=== PATIENT | female | born 1990 | race Caucasian/White ===

== ENCOUNTER 2016-06-25 10:48 | Emergency (ER) | payer OTHER ==
[2016-06-25 11:04] VITALS: BP 108/61
--- NOTE | 2016-06-25 11:10 | ER Document Report ---
HPI - HPI Onset: Other - 2 days Quality of pain: No pain Pain Level: Denies Context: 25-year-old female had a ring that she normally wears on her left fourth finger but was cold and so the rings loose and she put it on her third finger of her left hand. She woke up the next morning and was unable to get it off so she came to the emergency room and it is already been twisted off by the nurse. Finger exam is normal. Associated Symptoms: None Exacerbated by: Denies Relieved by: Denies Similar symptoms previously: No Recently seen / treated by doctor: No - ROS ROS below otherwise negative: Yes Systems Reviewed and Negative: Yes All other systems reviewed and negative - CONSTITUTIONAL Constitutional: DENIES: Fever, Chills - EENT EENT: DENIES: Sore Throat, Ear Pain, Nasal Drainage-Clear, Nasal Drainage- Purulent, Congestion, Eye problems - NEURO Neurology: DENIES: Headache, Weakness, Vision blurred, Dizzinesss / Vertigo - CARDIOVASCULAR Cardiovascular: DENIES: Chest pain - RESPIRATORY Respiratory: DENIES: Trouble Breathing, Coughing - GASTROINTESTINAL Gastrointestinal: DENIES: Abdominal Pain, Nausea, Patient vomiting, Diarrhea, Constipation, Black / Bloody Stools - URINARY Urinary: DENIES: Dysuria, Urgency, Frequency - REPRODUCTIVE Reproductive: DENIES: :, Postmenopausal, Abnormal bleeding / discharge - MUSCULOSKELETAL Musculoskeletal: DENIES: Extremity pain, Back Pain, Neck Pain, Swelling - DERM Skin Color: Normal Skin Problems: None - NURSING COMMENTS Comment: pt states she has ring stuck on the left middle finger. ring removed by ria pct. no complications Past Medical History - General Information source: Patient - Social History Smoking Status: Unknown if Ever Smoked Cigarette use (# per day): No Chew tobacco use (# tins/day): No Frequency of alcohol use: Occasional Drug Abuse: None Lives with: Spouse/Significant other Family History: Reviewed & Not Pertinent Patient has suicidal ideation: No Patient has homicidal ideation: No - Medical History Medical History: Negative Renal/ Medical History: Denies: Hx Peritoneal Dialysis Surgical Hx: Negative - Immunizations Hx Diphtheria, Pertussis, Tetanus Vaccination: No Vertical Provider Document - CONSTITUTIONAL Agree With Documented VS: Yes Exam Limitations: No Limitations General Appearance: No Apparent Distress - INFECTION CONTROL TRAVEL OUTSIDE OF THE [place] IN LAST 30 DAYS: No - HEENT HEENT: Normocephalic - NECK Neck: Supple - RESPIRATORY O2 Sat by Pulse Oximetry: 98 - MUSCULOSKELETAL/EXTREMETIES Musculoskeletal/Extremeties: MAEW, FROM, Non-Tender - NEURO Level of Consciousness: Awake, Alert - DERM Integumentary: Warm, Dry Course - Vital Signs Vital signs: Temp Pulse Resp BP Pulse Ox 98.0 F 79 14 108/61 98 06/25/16 11:02 06/25/16 11:02 06/25/16 11:02 06/25/16 11:02 06/25/16 11:02 Discharge - Discharge Clinical Impression: third left finger ring removal Condition: Good Disposition: HOME, SELF-CARE Additional Instructions: to er any concerns
== END 2016-06-25 11:10 | disposition home or self-care (01) ==
LOC: ER 10:48
DX: S60.455A Superficial foreign body of left ring finger, initial encounter (principal); X58.XXXA Exposure to other specified factors, initial encounter
CPT/HCPCS: 99283

== ENCOUNTER 2016-09-30 12:43 | Emergency (ER) | payer OTHER ==
[2016-09-30] MEDS ORDERED: LIDOCAINE 1% INJ-PF (10 MG/ML) 30 ML SDV INJ ONE (13:40)
[2016-09-30] MEDS ORDERED: LIDOCAINE 4%/TETRACAINE 0.5%/EPI 0.18% 5 ML TOPICAL SOLN TOP ONE (13:40)
--- NOTE | 2016-09-30 14:46 | ER Document Report ---
HPI - HPI Patient complains to provider of: Laceration Pain Level: 0 Context: Patient is a 26-year-old female presented with department with 2 lacerations on her right hand dishes one is on the second digit on the PIP and the second is on the third digit on the PIP. Patient's tetanus is up-to-date as of a year ago. Otherwise she denies any allergies [facility] - CARDIOVASCULAR Cardiovascular: DENIES: Chest pain - REPRODUCTIVE Reproductive: DENIES: : - DERM Skin Color: Normal Past Medical History - Social History Smoking Status: Current Some Day Smoker Frequency of alcohol use: Occasional Drug Abuse: None Family History: Reviewed & Not Pertinent Patient has suicidal ideation: No Patient has homicidal ideation: No Renal/ Medical History: Denies: Hx Peritoneal Dialysis Surgical Hx: Negative - Immunizations Hx Diphtheria, Pertussis, Tetanus Vaccination: No Vertical Provider Document - CONSTITUTIONAL Agree With Documented VS: Yes Exam Limitations: No Limitations General Appearance: WD/WN, No Apparent Distress - INFECTION CONTROL TRAVEL OUTSIDE OF THE [place] IN LAST 30 DAYS: No - RESPIRATORY O2 Sat by Pulse Oximetry: 99 - CARDIOVASCULAR Pulses: Bounding: Radial - Capillary refill less than 2 seconds in all upper extremity digits - MUSCULOSKELETAL/EXTREMETIES Musculoskeletal/Extremeties: MAEW, FROM, Non-Tender, No Edema Notes: No evidence of tendon injury. Full range of motion - NEURO Level of Consciousness: Awake, Alert, Appropriate Motor/Sensory: No Motor Deficit, No Sensory Deficit - DERM Integumentary: Laceration - Both are measuring 2 cm in length. one is on the second digit on the PIP and the second is on the third digit on the PIP.The laceration on the second digit is extending into the subcutaneous fat the other laceration on the third digit is superficial not passing the dermis. Course - Re-evaluation Re-evalutation: 09/30/16 20:18 26-year-old female who is hemodynamic stable, no acute distress and afebrile. The right second digit laceration was closed with 2 5-0 nylon sutures after irrigation with Betadine and saline dressed with dry sterile dressing. Laceration on the third digit was closed with Steri-Strips. Discussed with patient to follow-up in 8-10 days with primary care for removal - Vital Signs Vital signs: Temp Pulse Resp BP Pulse Ox 97.8 F 91 18 104/79 99 09/30/16 12:47 09/30/16 12:47 09/30/16 12:47 09/30/16 12:47 09/30/16 12:47 Procedures - Laceration/Wound Repair Right Hand Wound length (cm): 2 Wound's Depth, Shape: Linear Laceration pre-procedure: Sterile PPE donned, Betadine prep applied, Sterile drapes applied Anesthetic type: Other - LET Wound explored: Clean, No foreign body removed Wound Debrided: Minimal Wound Repaired With: Sutures Suture Size/Type: 5:0, Nylon Number of Sutures: 2 Layer Closure?: No Post-procedure wound care: Sterile dressing applied Post-procedure NV exam normal: Yes Complications: No Discharge - Discharge Clinical Impression: Laceration Condition: Good Disposition: HOME, SELF-CARE Instructions: Antibiotic Ointment Protection ([facility]), Laceration Care ([facility]), Soap Cleansing ([facility]), Use of [id number]-Cbg-Ln[facility] Ibuprofen ([facility]) Additional Instructions: Please follow up in 8-10 days to have your stitches removed
[2016-09-30 15:17] VITALS: BP 116/68
== END 2016-09-30 15:08 | disposition home or self-care (01) ==
LOC: ER 12:43
PROC: 0HQFXZZ Repair Right Hand Skin, External Approach (ICD-10-PCS; principal; 2016-09-30)
DX: S61.210A Laceration without foreign body of right index finger without damage to nail, initial encounter (principal); S61.212A Laceration without foreign body of right middle finger without damage to nail, initial encounter; W45.8XXA Other foreign body or object entering through skin, initial encounter; Y93.G1 Activity, food preparation and clean up; F17.200 Nicotine dependence, unspecified, uncomplicated
CPT/HCPCS: 12001; 99282; J3490

== ENCOUNTER 2017-05-18 22:59 | Emergency (ER) | payer OTHER ==
--- NOTE | 2017-05-18 23:13 | ER Document Report ---
ED Medical Screen (RME) - General Chief Complaint: OB Problem (<20wks) Stated Complaint: 19 WKS GESTATION,POSSIBLY LEAKING FLUID Time Seen by Provider: 05/18/17 23:08 Mode of Arrival: Ambulatory Information source: Patient Notes: 26 yo female 19 weeks 0 days c/o low abdominal cramping like normal but is worried about the leaking odoless clear fluid onto underwear onset 5 hours ago.. Spoke with [facility] and they said to come to the ER. No bleeding. No urinary symptoms. No hx labor or incompetant cervix. Labor and Delivery nurse is coming down to check if the fluid is amnioc fluid. TRAVEL OUTSIDE OF THE [place] IN LAST 30 DAYS: No - Related Data Allergies/Adverse Reactions: No Known Allergies Allergy (Verified 09/30/16 12:46) Past Medical History Renal/ Medical History: Denies: Hx Peritoneal Dialysis - Immunizations Hx Diphtheria, Pertussis, Tetanus Vaccination: No
[2017-05-18 23:53] LABS: AMNISURE (ROM) NEGATIVE (NEGATIVE)
[2017-05-19 00:25] LABS: AMORPHOUS SEDIMENT,URINE TRACE /HPF; BILIRUBIN,URINE NEGATIVE (NEGATIVE); GLUCOSE, URINE NEGATIVE (NEGATIVE); KETONES,URINE NEGATIVE (NEGATIVE); LEUKOCYTE ESTERASE,URINE NEGATIVE (NEGATIVE); NITRITE,URINE NEGATIVE (NEGATIVE); PROTEIN,URINE NEGATIVE (NEGATIVE); UROBILINOGEN,URINE NEGATIVE mg/dL (<2.0)
[2017-05-19 00:26] LABS: APPEARANCE,URINE HAZY; COLOR,URINE LIGHT YELLOW
--- NOTE | 2017-05-19 00:47 | ER Document Report ---
ED GI/ - General Chief Complaint: OB Problem (<20wks) Stated Complaint: 19 WKS GESTATION,POSSIBLY LEAKING FLUID Time Seen by Provider: 05/18/17 23:08 Mode of Arrival: Ambulatory Notes: Patient is a 26-year-old female, at 19 weeks gestation that comes emergency department for chief complaint of clear fluid that she found in her underwear. She states that she noticed clear fluid in her underwear initially, she noticed it again a little while later and became concerned, called her OB/ TRACTOR TECHNICIAN at [facility] who advised her to come to the emergency department per patient. She states she has been having cramping but this has been consistent for weeks, she denies any new pain, she denies any bleeding, she is feeling baby moving, she denies any fever, flank pain, dysuria, nausea/vomiting. Past medical history of asthma. TRAVEL OUTSIDE OF THE [place] IN LAST 30 DAYS: No - Related Data Allergies/Adverse Reactions: No Known Allergies Allergy (Verified 09/30/16 12:46) Past Medical History - General Information source: Patient - Social History Smoking Status: Never Smoker Frequency of alcohol use: None Drug Abuse: None Lives with: Family Family History: Reviewed & Not Pertinent Patient has suicidal ideation: No Patient has homicidal ideation: No Pulmonary Medical History: Reports: Hx Asthma Renal/ Medical History: Denies: Hx Peritoneal Dialysis Surgical Hx: Negative - Immunizations Hx Diphtheria, Pertussis, Tetanus Vaccination: No Review of Systems - Review of Systems Constitutional: No symptoms reported EENT: No symptoms reported Cardiovascular: No symptoms reported Respiratory: No symptoms reported Gastrointestinal: See HPI Genitourinary: No symptoms reported Female Genitourinary: See HPI Musculoskeletal: No symptoms reported Skin: No symptoms reported Hematologic/Lymphatic: No symptoms reported Neurological/Psychological: No symptoms reported Physical Exam - Vital signs Vitals: Temp Pulse Resp BP Pulse Ox 98.2 F 90 18 112/64 99 05/18/17 23:16 05/18/17 23:16 05/18/17 23:16 05/18/17 23:16 05/18/17 23:16 Interpretation: Normal - General General appearance: Appears well, Alert In distress: None - HEENT Head: Normocephalic, Atraumatic Eyes: Normal Pupils: PERRL - Respiratory Respiratory status: No respiratory distress Chest status: Nontender Breath sounds: Normal. No: Decreased air movement, Wheezing Chest palpation: Normal - Cardiovascular Rhythm: Regular. No: Tachycardia Heart sounds: Normal auscultation, S1 appreciated, S2 appreciated Murmur: No - Abdominal Inspection: Normal, Gravid female Distension: No distension Bowel sounds: Normal Tenderness: Nontender. No: Tender - Back Back: Normal, Nontender - Extremities General upper extremity: Normal inspection, Nontender, Normal color, Normal ROM , Normal temperature General lower extremity: Normal inspection, Nontender, Normal color, Normal ROM , Normal temperature, Normal weight bearing. No: Lan's sign - Neurological Neuro grossly intact: Yes Cognition: Normal Orientation: AAOx4 [place] Coma Scale Eye Opening: Spontaneous [place] Coma Scale Verbal: Oriented [place] Coma Scale Motor: Obeys Commands Nataliia Coma Scale Total: 15 Speech: Normal Motor strength normal: LUE, RUE, LLE, RLE Sensory: Normal - Psychological Associated symptoms: Normal affect, Normal mood - Skin Skin Temperature: Warm Skin Moisture: Dry Skin Color: Normal Course - Re-evaluation Re-evalutation: Patient well-appearing, alert, soft abdomen, unremarkable vital signs. Triage provider has already asked L&D nurse to come and perform membrane rupture test on patient's underwear/fluid. This test is negative. Urine is very dilute and nearly clear. Could just be urine. Unremarkable ultrasound with living IUP and no obvious acute abnormalities. Clinical picture most suggestive of patient having some urine in her underwear, no evidence of ruptured membranes. Discussed with Dr. Newell. Patient given follow-up instructions, return precautions, discussed details, patient and state satisfaction and agreement. - Vital Signs Vital signs: Temp Pulse Resp BP Pulse Ox 97.9 F 89 18 104/65 99 05/19/17 02:31 05/19/17 02:31 05/19/17 02:31 05/19/17 02:31 05/19/17 02:31 Discharge - Discharge Clinical Impression: Fluid loss, Symptom involving bladder Condition: Stable Disposition: HOME, SELF-CARE Additional Instructions: The membrane rupture test is negative. Your ultrasound has no observed abnormalities at this time. This episode was most likely urine. Perform kegel exercises to reduce likelihood of urine leakage. Follow-up closely with PROFESSOR OF APOLOGETICS. Return if you have persistent leakage, sudden acosta of fluids, severe pain, or any other concerning symptoms.
--- NOTE | 2017-05-19 02:12 | RADIOLOGY REPORT (SQ) ---
EXAM DESCRIPTION: U/S OB LIMITED CLINICAL HISTORY: 26 years, Female, measure amniotic fluid COMPARISON: None. LIMITATIONS: Targeted limited obstetrical exam for requested parameters. FINDINGS: Largest vertical pocket: 3.0 cm. position: Transverse Placental location anterior Cervical length 4.1 cm, closed appearance. Cardiac activity: 152 bpm. IMPRESSION: Targeted Limited obstetrical exam for requested parameters. 2011 [employer]- All Rights Reserved
[2017-05-19 02:35] VITALS: BP 104/65
== END 2017-05-19 02:38 | disposition home or self-care (01) ==
LOC: ER 22:59
DX: O26.92 Pregnancy related conditions, unspecified, second trimester (principal); N32.9 Bladder disorder, unspecified; Z3A.19 19 weeks gestation of pregnancy
CPT/HCPCS: 76815; 81001; 84112; 99284

== ENCOUNTER 2018-01-30 02:38 | Emergency (ER) | payer OTHER ==
[2018-01-30] MEDS ORDERED: NORMAL SALINE 1000 ML 1,000 ML IV ONE (04:16)
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
[2018-01-30 05:16] VITALS: BP 99/66
== END 2018-01-30 05:17 | disposition home or self-care (01) ==
LOC: ER 02:38
DX: R10.9 Unspecified abdominal pain (principal); R19.7 Diarrhea, unspecified
CPT/HCPCS: 99284